=== PATIENT | female | born 1985 | race Caucasian/White ===

== ENCOUNTER 2018-04-11 01:37 | Emergency (ER) | payer BC ==
[2018-04-11 01:43] VITALS: BP 117/72
[2018-04-11] MEDS ORDERED: DEXAMETHASONE SOD PHOS INJ 10 MG/1 ML VIAL IM ONE (02:17)
--- NOTE | 2018-04-11 02:17 | ER Document Report ---
ED General - General Chief Complaint: Cold Symptoms Stated Complaint: COLD SYMPTOMS Time Seen by Provider: 04/11/18 02:15 Notes: Patient is a 32-year-old female presents with complaints of runny nose congestion. A lot of sinus pressure. No fever. Symptoms have been ongoing for about 3 days. No vomiting. No diarrhea. Occasional cough. No difficulty breathing. No recent sick contacts. No chronic medical problems. TRAVEL OUTSIDE OF THE [place] IN LAST 30 DAYS: No - Related Data Allergies/Adverse Reactions: risperidone [From Risperdal] Allergy (Verified 04/11/18 01:39) Past Medical History - Social History Smoking Status: Never Smoker Frequency of alcohol use: None Drug Abuse: None Family History: Reviewed & Not Pertinent Patient has suicidal ideation: No Patient has homicidal ideation: No Renal/ Medical History: Denies: Hx Peritoneal Dialysis Review of Systems - Review of Systems Notes: My Normal Review Basic REVIEW OF SYSTEMS: CONSTITUTIONAL : Denies fever, chills, or sweats. EENT: Nasal congestion RESPIRATORY: Occasional cough. GASTROINTESTINAL: Denies abdominal pain. Denies nausea, vomiting, or diarrhea. MUSCULOSKELETAL: Denies neck or back pain or joint pain or swelling. NEUROLOGICAL: Denies altered mental status or loss of consciousness. Denies headache. Denies weakness or paralysis or loss of use of either side. Denies problems with gait or speech. Denies sensory or motor loss. ALL OTHER SYSTEMS REVIEWED AND NEGATIVE. Physical Exam - Vital signs Vitals: Temp Pulse Resp BP Pulse Ox 97.3 F 86 18 117/72 95 04/11/18 01:41 04/11/18 01:41 04/11/18 01:41 04/11/18 01:41 04/11/18 01:41 - Notes Notes: General Appearance: Well nourished, alert, cooperative, no acute distress, no obvious discomfort. We will nasal congestion on exam. Vitals: reviewed, See vital signs table. Head: no swelling or tenderness to the head Eyes: PERRL, EOMI, Conjuctiva clear Mouth: No decreasd moisture Throat: No tonsillar inflammation, No airway obstruction, No lymphadenopathy Neck: Supple, no neck tenderness, No thyromegaly Ears: Normal-appearing tympanic membranes bilaterally. Small amount of clear fluid behind each TM. Lungs: No wheezing, No rales, No rhonci, No accessory muscle use, good air exchange bilaterally. Heart: Normal rate, Regular rythm, No murmur, no rub Neuro: speech clear, oriented x 3, normal affect, responds appropriately to questions. Course - Re-evaluation Re-evalutation: 04/11/18 02:56 Patient is history and physical exam findings consistent with that of upper respiratory infection. I see no evidence of bacterial infection. There is no evidence of ear infection. He has just clear fluid behind the TMs. No redness or erythema to TMs. Throat is not erythematous. Patient is on nasal congestion on exam with sinus pressure. We will give her a dose of Decadron. I encouraged her to take [id number] nasal decongestants. I encouraged her return to ER if she has fevers, difficulty breathing, or worsening of her symptoms. Patient agrees with plan and will be discharged home. Dictation of this chart was performed using voice recognition software; therefore, there may be some unintended grammatical errors. - Vital Signs Vital signs: Temp Pulse Resp BP Pulse Ox 97.3 F 86 18 117/72 95 04/11/18 01:41 04/11/18 01:41 04/11/18 01:41 04/11/18 01:41 04/11/18 01:41 Discharge - Discharge Clinical Impression: URI (upper respiratory infection) Qualifiers: URI type: unspecified URI Qualified Code(s): J06.9 - Acute upper respiratory infection, unspecified Condition: Good Disposition: HOME, SELF-CARE Additional Instructions: PLease take over the counter decongestants such as pseudophed. Please try to stop smoking. please return to the ER if you have worsening of your symptoms, fevers, difficulty breathing, or feel unwell. Follow up with a doctor in 4 days if you are still having symptoms. Forms: Return to Work
== END 2018-04-11 02:25 | disposition home or self-care (01) ==
LOC: ER 01:37
DX: J06.9 Acute upper respiratory infection, unspecified (principal); R09.89 Other specified symptoms and signs involving the circulatory and respiratory systems; R09.81 Nasal congestion; R05 Cough; Z88.8 Allergy status to other drugs, medicaments and biological substances
CPT/HCPCS: 99283; 96372; J1100

== ENCOUNTER 2018-12-26 01:44 | Emergency (ER) | payer BC ==
[2018-12-26] MEDS ORDERED: PREDNISONE 20 MG TABLET PO ONE (02:57)
--- NOTE | 2018-12-26 03:03 | ER Document Report ---
HPI - HPI Time Seen by Provider: 12/26/18 02:28 Pain Level: 5 Notes: Patient is a 33-year-old female presented to the emergency department with 3-day history of sore throat, headache and bilateral ear pain. Patient denies any fevers, nausea, vomiting or diarrhea. Patient has not tried taking any medications for this. Patient reports she believes the symptoms are because she stopped taking her Geodon. She states that she stopped taking this about 5 or 6 days ago. She states she stopped taking it because she did not like the way it made her feel. She does report history of bipolar, schizophrenia, depression and anxiety. She currently denies any suicidal or homicidal ideations. She reports that she sees Haylie Thomas at [facility] She further explains that she believes the sore throat is due to her quitting smoking and trying vaping. She states that the vaping heart sore throat. - REPRODUCTIVE Reproductive: DENIES: : Past Medical History - General Information source: Patient - Social History Smoking Status: Current Every Day Smoker Frequency of alcohol use: None Drug Abuse: None Family History: Reviewed & Not Pertinent Renal/ Medical History: Denies: Hx Peritoneal Dialysis Psychiatric Medical History: Reports: Hx Anxiety, Hx Bipolar Disorder, Hx Depression, Hx Schizophrenia Surgical Hx: Negative - Immunizations Immunizations up to date: Yes Vertical Provider Document - CONSTITUTIONAL Notes: PHYSICAL EXAMINATION: GENERAL: Well-appearing, well-nourished and in no acute distress. HEAD: Atraumatic, normocephalic. EYES: Pupils equal round extraocular movements intact, conjunctiva are normal. ENT: Nares patent, oropharynx clear, nonerythematous, no exudates noted, no tonsillar swelling noted, uvula midline. NECK: Normal range of motion, mild cervical lymphadenopathy. LUNGS: No respiratory distress, lung sounds clear and equal bilaterally. Musculoskeletal: Normal range of motion NEUROLOGICAL: Normal speech, normal gait. PSYCH: Normal mood, normal affect. SKIN: Warm, Dry, normal turgor, no rashes or lesions noted. - INFECTION CONTROL TRAVEL OUTSIDE OF THE [place] IN LAST 30 DAYS: No Course - Re-evaluation Re-evalutation: Patient's physical examination is unremarkable. Patient will be started on a course of prednisone for her upper respiratory symptoms. I did stress the importance of patient following up with her psychiatric provider due to her stopping her medications. I did advise her that it was dangerous to suddenly stop psychiatric medications. She states she will call her provider today to s et up an appointment. Patient was invited to return to the emergency department for any new or worsening symptoms to include suicidal or homicidal ideations or any new physical symptoms. Patient verbalized understanding and agreement with this. The patient's emergency department workup and current diagnosis were explained to the patient and or family. Follow-up instructions were provided. Med ications if prescribed were discussed. Instructions for when to return to the emergency department including specific worrisome symptoms were discussed with the patient and/or family. - Vital Signs Vital signs: Temp Pulse Resp BP Pulse Ox 98.5 F 70 14 103/61 96 12/26/18 01:44 12/26/18 01:44 12/26/18 01:44 12/26/18 01:44 12/26/18 01:44 Discharge - Discharge Clinical Impression: Sore throat Condition: Stable Disposition: HOME, SELF-CARE Additional Instructions: Please stop vaping as this is most likely the cause of your sore throat. Take the prednisone as prescribed, take ibuprofen 600 mg every 6 hours. Please follow-up with your mental health provider regarding any changes to your medications. Please try to avoid abruptly stopping her medications. Please return to the emergency department if you experience any worsening symptoms or develop suicidal or homicidal thoughts. We are happy to reevaluate you at any time. Prescriptions: Prednisone [Deltasone 20 mg Tablet] 3 tab PO DAILY 4 Days #12 tablet
[2018-12-26 03:28] VITALS: BP 104/68
== END 2018-12-26 03:33 | disposition home or self-care (01) ==
LOC: ER 01:44
DX: J02.9 Acute pharyngitis, unspecified (principal); R51 Headache; H92.03 Otalgia, bilateral; F17.200 Nicotine dependence, unspecified, uncomplicated
CPT/HCPCS: 99283; J7512

== ENCOUNTER 2019-11-14 10:11 | Emergency (ER) | payer BC, MEDICAID ==
--- NOTE | 2019-11-14 11:02 | ER Document Report ---
ED General <GIOALVAREZLA - Last Filed: 11/14/19 13:34> - General TRAVEL OUTSIDE OF THE [place] IN LAST 30 DAYS: No <MIKAL ARNOLD - Last Filed: 11/14/19 14:26> - General Chief Complaint: Psych Problem Stated Complaint: SHORTNESS OF BREATH Time Seen by Provider: 11/14/19 10:33 Primary Care Provider: Tova Guillermo [Outside] - 11/14/19 (As a medication management walk in. Also request therapy. ) [facility] [Outside] - Follow up as needed [facility] [Outside] - Follow up as needed Notes: CHIEF COMPLAINT: Multiple complaints HPI: 34-year-old female with schizophrenic history who states she has been taking her medications and following with her psychiatric providers presenting for multiple complaints. Patient states she has been having some vaginal spotting over the last several days. Patient reports occasional blurry vision. Patient reports occasional shortness of breath. Patient feels like her anxiety is gone up since she lost her job in June. She denies abdominal pain. She denies nausea vomiting. She denies fever. She denies cough. Patient also states that she is continuing to have auditory and visual hallucinations. Patient states the visual hallucinations are mostly shadows, the auditory hallucinations have to do with having and help but none of the voices are telling her to hurt herself or others. States that she always seems to have these feels like maybe they have gotten worse since she lost her job but not specifically in the last several weeks ROS: See HPI - all other systems were reviewed and are otherwise negative Constitutional: no fever or recent illness Eyes: no drainage, positive blurred vision ENT: no runny nose, no sore throat Cardiovascular: no chest pain Resp: Occasional SOB, no cough GI: no vomiting, no diarrhea : no dysuria, no vaginal discharge, positive vaginal spotting Integumentary: no rash Allergy: no hives Musculoskeletal: no extremity pain or swelling Neurological: no numbness/tingling, no weakness MEDICATIONS: I agree with the patient medications as charted by the RN. ALLERGIES: I agree with the allergies as charted by the RN. PAST MEDICAL HISTORY/PAST SURGICAL HISTORY: Reviewed and agree as charted by RN. SOCIAL HISTORY: Reviewed and agree as charted by RN. FAMILY HISTORY: No significant familial comorbid conditions directly related to patient complaint EXAM: Reviewed vital signs as charted by RN. CONSTITUTIONAL: Alert and oriented and responds appropriately to questions. Well-appearing; well-nourished. Difficult to keep the patient focused on specific questions HEAD: Normocephalic; atraumatic EYES: PERRL; Conjunctivae clear, sclerae non-icteric ENT: normal nose; no rhinorrhea; moist mucous membranes; pharynx without lesions noted NECK: Supple without meningismus; non-tender; no cervical lymphadenopathy, no masses CARD: RRR; no murmurs, no clicks, no rubs, no gallops; symmetric distal pulses RESP: Normal chest excursion without splinting or tachypnea; breath sounds clear and equal bilaterally; no wheezes, no rhonchi, no rales ABD/GI: Normal bowel sounds; non-distended; soft, non-tender, no rebound, no guarding; no palpable organomegaly or masses : Female nurse statistical clerk present. External genitalia normal. No skin lesions noted. Pelvic Exam: small amount dark blood in the pelvic vault. No purulent discharge. Cervix appears normal. No CMT. No lesions or masses. Uterus normal size and non tender. Right/Left adnexa normal size and non tender. BACK: The back appears normal and is non-tender to palpation, there is no CVA tenderness EXT: Normal ROM in all joints; non-tender to palpation; no cyanosis, no effusions, no edema SKIN: Normal color for age and race; warm; dry; good turgor; no acute lesions noted NEURO: Moves all extremities equally; Motor and sensory function intact PSYCH: The patient's mood and manner are appropriate. Grooming and personal hygiene are appropriate. MDM: 34-year-old female presenting with multiple complaints. Will obtain baseline screening labs, urinalysis, perform pelvic exam, visual acuity. None of her symptoms seem persistent. She does talk about her visual and auditory hallucinations will have psychiatric team evaluate the patient although she s pecifically denies thoughts of hurting herself or others (MIKAL ARNOLD) - Related Data Allergies/Adverse Reactions: risperidone [From Risperdal] Allergy (Verified 04/11/18 01:39) Past Medical History - Social History Smoking Status: Former Smoker Frequency of alcohol use: Occasional Drug Abuse: Marijuana Family History: Reviewed & Not Pertinent Patient has homicidal ideation: No Renal/ Medical History: Denies: Hx Peritoneal Dialysis Psychiatric Medical History: Reports: Hx Anxiety, Hx Bipolar Disorder, Hx Depression, Hx Schizophrenia Past Surgical History: Reports: Hx Abdominal Surgery, Hx Gynecologic Surgery - Immunizations Immunizations up to date: Yes <MIKAL ARNOLD - Last Filed: 11/14/19 14:26> Physical Exam - Vital signs Vitals: Temp Pulse Resp BP Pulse Ox 98.6 F 65 20 104/75 97 11/14/19 10:20 11/14/19 10:20 11/14/19 10:20 11/14/19 10:20 11/14/19 10:20 Course - Laboratory Result Diagrams: 11/14/19 11:59 11/14/19 11:59 <LA MAGANA - Last Filed: 11/14/19 13:34> - Laboratory Result Diagrams: 11/14/19 11:59 11/14/19 11:59 <MIKAL ARNOLD - Last Filed: 11/14/19 14:26> - Re-evaluation Re-evalutation: 11/14/19 14:24 No distress at this time. Has been evaluated by the psychiatric team who feel patient is stable for discharge. No change in medications. Patient is comfortable with this plan. She does have vaginitis will prescribe Flagyl. Other lab work does not show acute emergent abnormalities (MIKAL ARNOLD) - Vital Signs Vital signs: Temp Pulse Resp BP Pulse Ox 98.6 F 65 20 104/75 97 11/14/19 10:29 11/14/19 10:20 11/14/19 10:20 11/14/19 10:20 11/14/19 10:20 - Laboratory Laboratory results interpreted by me: 11/14/19 11/14/19 11:59 11:59 Basophils % (Manual) 3 H Sodium 136.5 L Salicylates < 1.0 L Acetaminophen < 10 L Discharge <LA MAGANA - Last Filed: 11/14/19 13:34> <MIKAL ARNOLD - Last Filed: 11/14/19 14:26> - Discharge Clinical Impression: Hallucinations, History of schizophrenia, Bacterial vaginitis Condition: Stable Disposition: HOME, SELF-CARE Additional Instructions: your lab work did not show acute emergent abnormalities other than bacterial vaginitis. Take the Flagyl to treat this. This is a bacterial vaginal infection. Follow-up with your psychiatric providers this week for reevaluation of your symptoms. Return for any concerns You have been evaluated by both medical and behavioral health teams for hallucinations. You have been deemed appropriate for discharge. While in the emergency department you received the following services: Medical screening and assessment, nursing services, dietary services, pharmacological services, one-on-one counseling and/or psychotherapy, environmental services, and continuous observation by a patient safety representative. Medication recommendations have been have been provided and are as follows: Continue home medications as directed until you see your outpatient mental health provider at [facility] ([facility]). You should avoid use of alcohol and cannabis due to your diagnosis of Schizophrenia as these can interfere with medication effectiveness or cause/exacerbate symptoms (such as paranoia and hallucinations). Hallucinations (these can occur due to lack of sleep, also can happen when taking medications not prescribed to you and using alcohol) You seem to be having hallucinations. Hallucinations are seeing, hearing, or feeling things that don't exist. These symptoms commonly occur with drug abuse and schizophrenia. Drugs like PCP, LSD, MDMA, peyote, and "psychedelic mushrooms" can cause frightening hallucinations. Users of methamphetamine or crack cocaine often see and feel bugs crawling on their skin. Patients with schizophrenia may hear voices that no one else can hear. The delusions of schizophrenia often involve conspiracies or relationships that are not real. When symptoms are due to drug abuse, the mental state usually improves as the drug wears off. Someone you trust should be with you until you are better, to protect you and calm your fears. Tranquilizer medicine is helpful at controlling hallucinations, anxiety, and deluded thoughts. Get a proper diet and enough sleep. Most patients do very well when they get proper medical treatment and social support. You should return at once if your symptoms get worse, if you are having suicidal thoughts or thoughts about hurting others, or if you feel that you are in danger. Follow-up: You are recommended to follow up with your outpatient mental health provider at [facility] ([facility]) as a walk in today for medication management. You are also recommended to request therapy. You should continue home medications as prescribed until you see your provider. You should avoid the use of alcohol and cannabis. If your symptoms persist or worsen notify your physician immediately, utilize mobile crisis (you have been provided these contact numbers) or return to the emergency department at any time. Prescriptions: Metronidazole [Flagyl 500 mg Tablet] 500 mg PO BID #14 tablet Referrals: [facility] [Outside] - Follow up as needed [facility] [Outside] - Follow up as needed [facility] [Outside] - 11/14/19 (As a medication management walk in. Also request therapy. )
--- NOTE | 2019-11-14 11:38 | RADIOLOGY REPORT (SQ) ---
EXAM DESCRIPTION: CHEST SINGLE VIEW IMAGES COMPLETED DATE/TIME: 11/14/2019 11:28 am REASON FOR STUDY: sob COMPARISON: None. EXAM PARAMETERS: NUMBER OF VIEWS: One view. TECHNIQUE: Single frontal radiographic view of the chest acquired. RADIATION DOSE: NA LIMITATIONS: None. FINDINGS: LUNGS AND PLEURA: No opacities, masses or pneumothorax. No pleural effusion. MEDIASTINUM AND HILAR STRUCTURES: No masses. Contour normal. HEART AND VASCULAR STRUCTURES: Heart normal in size. Normal vasculature. BONES: No acute findings. HARDWARE: None in the chest. OTHER: No other significant finding. IMPRESSION: 1. NO ACUTE RADIOGRAPHIC FINDING IN THE CHEST. TECHNICAL DOCUMENTATION: JOB ID: [id number] 2010 [employer]- All Rights Reserved Reading location - IP/workstation name: [email or web address]
[2019-11-14 12:19] LABS: BACTERIA (WET MOUNT) 3+ BACTERIA SEEN; EPITHELIALS (WET MOUNT) 3+ EPITHELIALS SEEN; T.VAGINALIS (WET MOUNT) NO TRICHOMONAS SEEN; WBCS (WET MOUNT) FEW WBCS SEEN; YEAST (WET MOUNT) NO YEAST SEEN
[2019-11-14 12:29] LABS: HEMATOCRIT 42.3 % (36.0-47.0); HEMOGLOBIN 14.4 g/dL (12.0-15.5); MEAN CORPUSCULAR HEMOGLOBIN 30.2 pg (27.0-33.4); MEAN CORPUSCULAR HGB CONC 34.2 g/dL (32.0-36.0); MEAN CORPUSCULAR VOLUME 89 fl (80-97); PLATELET COUNT 309 10^3/uL (150-450); RED BLOOD COUNT 4.78 10^6/uL (3.72-5.28); RED CELL DISTRIBUTION WIDTH 13.7 % (11.5-14.0); WHITE BLOOD COUNT 4.4 10^3/uL (4.0-10.5)
[2019-11-14 12:31] LABS: AMORPHOUS SEDIMENT,URINE 2+ /HPF; APPEARANCE,URINE TURBID; BILIRUBIN,URINE NEGATIVE (NEGATIVE); COLOR,URINE YELLOW; GLUCOSE, URINE NEGATIVE (NEGATIVE); KETONES,URINE NEGATIVE (NEGATIVE); LEUKOCYTE ESTERASE,URINE NEGATIVE (NEGATIVE); NITRITE,URINE NEGATIVE (NEGATIVE); PROTEIN,URINE NEGATIVE (NEGATIVE); URINE SPECIFIC GRAVITY 1.011; UROBILINOGEN,URINE NEGATIVE mg/dL (<2.0)
[2019-11-14 12:50] LABS: ALBUMIN 4.5 g/dL (3.5-5.0); ALKALINE PHOSPHATASE 85 U/L (38-126); ANION GAP 8 (5-19); ASPARTATE AMINO TRANSFERASE 28 U/L (14-36); BILIRUBIN,TOTAL 0.4 mg/dL (0.2-1.3); BLOOD UREA NITROGEN 14 mg/dL (7-20); CALCIUM 9.4 mg/dL (8.4-10.2); CARBON DIOXIDE 25 mmol/L (22-30); CHLORIDE 104 mmol/L (98-107); GLUCOSE 99 mg/dL (75-110); POTASSIUM 4.5 mmol/L (3.6-5.0)
[2019-11-14 12:51] LABS: URINE AMPHETAMINES SCREEN NEGATIVE; URINE BENZODIAZEPINES SCREEN NEGATIVE; URINE MARIJUANA (THC) SCREEN NEGATIVE; URINE METHADONE SCREEN NEGATIVE; URINE PHENCYCLIDINE SCREEN NEGATIVE
[2019-11-14 12:52] LABS: URINE COCAINE SCREEN NEGATIVE
[2019-11-14 12:53] LABS: ACETAMINOPHEN < 10 ug/mL (10-30); ALCOHOL < 10 mg/dL (NONE DETECTED); URINE BARBITURATES SCREEN NEGATIVE
[2019-11-14 12:54] LABS: SALICYLATE < 1.0 mg/dL (2.0-20.0)
[2019-11-14 13:17] LABS: ABSOLUTE MONOCYTES # (MANUAL) 0.3 10^3/uL (0.1-1.4); BASOPHILS % (MANUAL) 3 % (0-2); EOSINOPHILS % (MANUAL) 3 % (0-6); LYMPHOCYTES % (MANUAL) 19 % (13-45); MONOCYTES % (MANUAL) 7 % (3-13); SEGMENTED NEUTROPHILS % (MAN) 65 % (42-78); TOTAL CELLS COUNTED 100
[2019-11-14 13:18] LABS: ANISOCYTOSIS SLIGHT; PLATELET COMMENT ADEQUATE; TOXIC VACUOLATION PRESENT
[2019-11-14 13:46] LABS: CHLAM PCR NOT DETECTED (NOT DETECT)
[2019-11-14 14:38] VITALS: BP 114/72
--- NOTE | 2019-11-14 20:03 | EKG REPORT ---
SEVERITY:- NORMAL ECG - SINUS RHYTHM : Confirmed by: Paresh Vyas MD 14-Nov-2019 20:02:04
--- NOTE | 2019-11-15 08:47 | PSYCHOLOGICAL NOTE ---
Psych Note - Psych Note Date seen by psych provider: 11/14/19 Time seen by psych provider: 13:65 - [id number] Psych Note: Presenting Problem: Patient is a 34 year old female who presented to the [facility] ED today via POV/grandparents for SOB and other random medical complaints. Attending ED Physician came to this clinician at 1109 and noted a history of paranoid schizophrenia, patient endorsed hallucinations that she always has, she takes medications and has a provider. Patient identified she is prescribed Rexulti 2MG QD and Klonopin 0.5MG QHS by Haylie at [facility]. She stated she was there about last . She identified she has been stressed because she started a new job that is significantly less money than the job she lost in June. She reported having a puppy that gets her up at 0300 in the morning so poor sleep. She admitted she using some stimulant type medication (mentioned Adderall, Concerta, or Strattera) to keep her awake to complete tasks since the puppy has her up. Patient acknowledged this medication is not prescribed to her. She also admitted to using a vape pen which she stopped because "it made me more paranoid." Mentioned to patient how engaged she was in evaluation and inquired if she was experiencing any hallucinations. Patient denied "hearing or seeing anything currently." Patient reported occasional drinking. She was educated on how alcohol and drugs (cannabis, stimulants) can interfere with prescribed medications or cause/ exacerbate symptoms she already has such as paranoia and hallucinations. Patient stated her grandparents brought her to the ED and are waiting in the parking lot. Attending ED Nurse described patient as laughing at inappropriate times like when she admitted to being stressed out and having pain in knees/back. Patient was alert and oriented to self, person, place, time and situation. Mood was euthymic with congruent affect. She denied current SI/HI. Patient did not appear to be responding to internal stimuli as evidenced by fair eye contact and answering questions appropriately when addressed. Thought processes were linear. Conversational speech was within normal limits for rate, tone and prosody. Intellectual abilities are estimated to be average. Insight, judgment and impulse control were fair as evidenced by discussing her stress lower income work than what she was used to). Clinical Presentation: Medical complaints such as SOB and others Hallucinations Diagnosis: Paranoid Schizophrenia by History R/O Bipolar or Schizoaffective Disorder Impression/Plan: Patient is cleared from acute psychiatric services. She denied current SI/HI, admitted to a history of A/V hallucinations, denied experiencing any during evaluation with this clinician and did not appear to be responding to internal stimuli as evidenced by fair eye contact/being engaged in evaluation/ability to carry on linear dialogue conversation. She has a provider at [facility] already. Provided an outpatient MH resource sheet which highlighted both MCM numbers and documented walk in to [facility] today if possible for medication management as well as request therapy. Consulted with Dr. Singh regarding the management and care of patient. ED Physician in agreement with recommendations.
== END 2019-11-14 14:39 | disposition home or self-care (01) ==
LOC: ER 10:11
DX: N76.0 Acute vaginitis (principal); B96.89 Other specified bacterial agents as the cause of diseases classified elsewhere; F20.9 Schizophrenia, unspecified; R06.02 Shortness of breath; H53.8 Other visual disturbances; F41.9 Anxiety disorder, unspecified; Z79.899 Other long term (current) drug therapy; Z87.891 Personal history of nicotine dependence; Z88.8 Allergy status to other drugs, medicaments and biological substances
CPT/HCPCS: 36415; 71045; 80053; 80307; 81001; 84703; 85025; 87210; 87491; 87591; 93005; 93010; 99285